=== PATIENT | female | born 1965 | race Caucasian/White ===

== ENCOUNTER 2016-12-19 19:23 | Observation (INO) | payer OTHER ==
--- NOTE | 2016-12-19 19:27 | PDOC ---
Rapid Medical Evaluation Medical Evaluation: Allergies Allergy/AdvReac Type Severity Reaction Status Date / Time ?ANTIBIOTIC Allergy Intermediate TONGUE Uncoded 05/06/15 10:42 SWELLING 12/19/16 19:25 51 yo F c/o CP/frontal ferguson/neck discomfort x2h while standing without SOB. Pain is exacerbated on deep inspiration and touch. Alleviated at rest/calm. No fever /chills, n/v. No recent travels/prolong sitting/bcp. <Mamie Mayo - Last Filed: 12/19/16 19:28> Medical Evaluation: Allergies Allergy/AdvReac Type Severity Reaction Status Date / Time ?ANTIBIOTIC Allergy Intermediate TONGUE Uncoded 12/19/16 19:26 SWELLING Vital Signs Temp Pulse Resp BP Pulse Ox 97.7 F 69 18 168/78 99 12/19/16 19:26 12/19/16 19:26 12/19/16 19:26 12/19/16 19:26 12/19/16 19:26 <Xochilt Winslow - Last Filed: 12/19/16 21:33> Time Seen by Provider: 12/19/16 19:25
[2016-12-19 19:29] VITALS: BMI 23.7
[2016-12-19 21:09] LABS: BASOPHIL 0.5 % (0-2.0); MCH 32.2 pg (25.7-33.7); MCHC 35.7 g/dl (32.0-36.0); MEAN CELL VOLUME 90.2 fl (80-96); MEAN PLT VOLUME 6.9 fl (7.5-11.1); NEUTROPHILS 43.6 % (42.8-82.8); PLATELET COUNT 224 K/MM3 (134-434); RDW 12.6 % (11.6-15.6); WHITE BLOOD COUNT 5.3 K/mm3 (4.0-10.0)
[2016-12-19 21:15] LABS: INR 1.03 (0.82-1.09); PROTHROMBIN TIME (PATIENT) 11.3 SEC (9.98-11.88)
[2016-12-19] MEDS ORDERED: ASPIRIN 81 MG CHEWABLE TABLETS PO ONE (21:24)
[2016-12-19] MEDS ORDERED: ACETAMINOPHEN 325 MG TABLET (FP) PO ONE (21:31)
[2016-12-19] MEDS ORDERED: ASPIRIN 81 MG CHEWABLE TABLETS ONE (21:32)
[2016-12-19 21:36] LABS: ALBUMIN 3.8 g/dl (3.4-5.0); ANION GAP 6 (8-16); BILIRUBIN,TOTAL 0.3 mg/dL (0.2-1.0); CALCIUM 9.4 mg/dL (8.5-10.1); CO2 29 mmol/L (21-32); CREATININE 0.7 mg/dL (0.55-1.02); GLUCOSE,RANDOM 110 mg/dL (74-106); SGOT/AST 16 U/L (15-37); SGPT/ALT 25 U/L (12-78); TOT PROT 6.9 g/dl (6.4-8.2)
[2016-12-19 21:38] LABS: ALK PHOS 91 U/L (45-117); TROPONIN I < 0.02 ng/ml (0.00-0.05)
--- NOTE | 2016-12-19 21:38 | PDOC ---
History of Present Illness - History of Present Illness Initial Comments: 12/19/16 21:42 The patient is a 51 year old female with a past medical hx of hypertension, and hyperlipidemia who presents to the ED complaining of chest pain and SOB for two hours. The patient states she felt these symptoms when she was standing up. She [place] was [place] the [place] when she felt the chest pain across her chest and felt very short of breath. The patient reports her chest pain is exacerbated with deep inspiration and palpation. The patient reports her pain is alleviated when she is relaxed. She is also complaining of neck pain and a frontal headache but denies any changes in vision, dizziness. The patient denies any nausea, vomiting, diarrhea The patient denies fever, chills. <Aileen Bonds - Last Filed: 12/19/16 21:48> - General History Source: Patient Exam Limitations: No Limitations - History of Present Illness Travel History: No Timing/Duration: reports: changing over time Quality: reports: moderate, other (pressure) Pain Radiation: reports: no radiation Activities at Onset: reports: none Alleviating Factors: improves with: None <Xochilt Winslow - Last Filed: 12/19/16 22:25> - General Chief Complaint: Chest Pain Stated Complaint: CHEST PAIN Time Seen by Provider: 12/19/16 19:25 Past History <Aileen Bonds - Last Filed: 12/19/16 21:48> - Past Medical History Anemia: Yes Asthma: No Cancer: No Cardiac Disorders: Yes CVA: No COPD: No CHF: No Dementia: No Diabetes: Yes (BORDERLINE) GI Disorders: No Disorders: No HTN: Yes Hypercholesterolemia: Yes Liver Disease: No Suicide Attempt (Hx): No Seizures: No Thyroid Disease: No - Surgical History Abdominal Surgery: Yes Orthopedic Surgery: Yes (LEFT KNEE SURGERY-MENISCUS TEAR) - Immunization History Immunization Up to Date: Yes - Psycho/Social/Smoking Cessation Hx Anxiety: No Suicidal Ideation: No Smoking Status: No Smoking History: Former smoker Have you smoked in the past 12 months: No Number of Cigarettes Smoked Daily: 7 If you are a former smoker, when did you quit?: 1.5yr Information on smoking cessation initiated: No 'Breaking Loose' booklet given: 05/06/15 Hx Alcohol Use: No Drug/Substance Use Hx: No Substance Use Type: None Hx Substance Use Treatment: No <Xochilt Winslow - Last Filed: 12/19/16 22:25> - Past Medical History Allergies/Adverse Reactions: Allergies Allergy/AdvReac Type Severity Reaction Status Date / Time No Known Drug Allergies Allergy Verified 12/19/16 21:40 ?ANTIBIOTIC Allergy Intermediate TONGUE Uncoded 12/19/16 19:26 SWELLING Home Medications: Ambulatory Orders Atorvastatin Ca [Lipitor] 40 mg PO HS 04/03/15 Lisinopril 10 mg PO DAILY 05/06/15 Metformin HCl [Glucophage] 1,000 mg PO BID 12/19/16 Pantoprazole Sodium [Protonix -] 40 mg PO DAILY 12/19/16 Review of Systems - Review of Systems Able to Perform ROS?: Yes Comments:: 12/19/16 21:47 CONSTITUTIONAL: Absent: fever, chills, diaphoresis, generalized weakness, malaise, loss of appetite HEENT: Absent: rhinorrhea, nasal congestion, throat pain, throat swelling, difficulty swallowing, mouth swelling, ear pain, eye pain, visual Changes CARDIOVASCULAR: +Chest pain. Absent: syncope, palpitations, irregular heart rate, lightheadedness, peripheral edema RESPIRATORY: +SOB Absent: cough, orthopnea, wheezing, stridor, hemoptysis GASTROINTESTINAL: Absent: abdominal pain, abdominal distension, nausea, vomiting, diarrhea, constipation, melena, hematochezia GENITOURINARY: Absent: dysuria, frequency, urgency, hesitancy, hematuria, flank pain, genital pain MUSCULOSKELETAL: +Neck pain. Absent: joint swelling SKIN: Absent: rash, itching, pallor HEMATOLOGIC/IMMUNOLOGIC: Absent: easy bleeding, easy bruising, lymphadenopathy, frequent infections ENDOCRINE: Absent: unexplained weight gain, unexplained weight loss, heat intolerance, cold intolerance NEUROLOGIC: +Headache. Absent: focal weakness or paresthesias, dizziness, unsteady gait, seizure, mental status changes, bladder or bowel incontinence PSYCHIATRIC: Absent: anxiety, depression, suicidal or homicidal ideation, hallucinations. <Aileen Bonds - Last Filed: 12/19/16 21:48> *Physical Exam - Vital Signs Last Vital Signs Temp Pulse Resp BP Pulse Ox 97.7 F 69 18 168/78 99 12/19/16 19:26 12/19/16 19:26 12/19/16 19:26 12/19/16 19:26 12/19/16 19:26 - Physical Exam Comments: 12/19/16 21:47 GENERAL: Well developed, well nourished. Awake and alert. No acute distress. HEENT: Normocephalic, atraumatic. PERRLA, EOMI. No conjunctival pallor. Sclera are non- icteric. Moist mucous membranes. Oropharynx is clear. NECK: Supple. Full ROM. No JVD. Carotid pulses 2+ and symmetric, without bruits. No thyromegaly. No lymphadenopathy. CARDIOVASCULAR: Regular rate and rhythm. No murmurs, rubs, or gallops. Distal pulses are 2+ and symmetric. PULMONARY: No evidence of respiratory distress. Lungs clear to auscultation bilaterally. No wheezing, rales or rhonchi. ABDOMINAL: Soft. Non-tender. Non-distended. No rebound or guarding. No organomegaly. Normoactive bowel sounds. MUSCULOSKELETAL Normal range of motion at all joints. No bony deformities or tenderness. No CVA tenderness. EXTREMITIES: No cyanosis. No clubbing. No edema. No calf tenderness. SKIN: Warm and dry. Normal capillary refill. No rashes. No jaundice. NEUROLOGICAL: Alert, awake, appropriate. Cranial nerves 2-12 intact. No deficits to light touch and temperature in face, upper extremities and lower extremities. No motor deficits in the in face, upper extremities and lower extremities. Normoreflexic in the upper and lower extremities. Normal speech. Toes are down-going bilaterally. Gait is normal without ataxia. PSYCHIATRIC: Cooperative. Good eye contact. Appropriate mood and affect. <Aileen Bonds - Last Filed: 12/19/16 21:48> - Vital Signs Last Vital Signs Temp Pulse Resp BP Pulse Ox 97.7 F 69 18 168/78 99 12/19/16 19:26 12/19/16 19:26 12/19/16 19:26 12/19/16 19:26 12/19/16 19:26 <Xochilt Winslow - Last Filed: 12/19/16 22:25> Heart Score/ECG Review - ECG Impressions Comment:: 12/19/16 21:49 EKG NSR at a reate of 63 BPM, no change from prior <Aileen Bonds - Last Filed: 12/19/16 21:48> ED Treatment Course - LABORATORY CBC & Chemistry Diagram: 12/19/16 20:48 12/19/16 20:48 - ADDITIONAL ORDERS Additional order review: Laboratory Results 12/19/16 20:48 INR 1.03 12/19/16 20:48 RBC 3.26 L MCV 90.2 MCHC 35.7 RDW 12.6 MPV 6.9 L Neutrophils % 43.6 D Lymphocytes % 46.1 H D Monocytes % 7.8 Eosinophils % 2.0 Basophils % 0.5 <Aileen Bonds - Last Filed: 12/19/16 21:48> - LABORATORY CBC & Chemistry Diagram: 12/19/16 20:48 12/19/16 20:48 - ADDITIONAL ORDERS Additional order review: Laboratory Results 12/19/16 20:48 INR 1.03 12/19/16 20:48 RBC 3.26 L MCV 90.2 MCHC 35.7 RDW 12.6 MPV 6.9 L Neutrophils % 43.6 D Lymphocytes % 46.1 H D Monocytes % 7.8 Eosinophils % 2.0 Basophils % 0.5 <Xochilt Winslow - Last Filed: 12/19/16 22:25> Medical Decision Making - Medical Decision Making 12/19/16 21:34 51 yo female dev chest pain earlier today. She had a pressure"like someone was sitting on my chest".She took a baby aspirin at the time -she also had shortness of breath when she dev chest pain ekg shows nsr@ 63 bpm, nonspecific st ,t wave changes -she now has c/o [place] social history-smoked 1ppd for 40 years,quit tobacco 18 months ago,rare etoh use -denies fever,chills,nausea,vomiting,cough PMH gallstones,HTN,NIDDM PSH c section,TL -Dr Acuna states she will admit OBS Telemetry cvr [id number] lungs cta b/l plan cbc,card enzyme,cxr,chem ,inr imp angina 12/19/16 21:40 <Xochilt Winslow - Last Filed: 12/19/16 22:25> *DC/Admit/Observation/Transfer - Attestations Scribe Attestion: 12/19/16 21:45 Documentation prepared by Aileen Bonds, acting as medical planner for Xochilt Winslow MD/DO. <Aileen Bonds - Last Filed: 12/19/16 21:48> - Discharge Dispostion Admit: Yes <Xochilt Winslow - Last Filed: 12/19/16 22:25> Diagnosis at time of Disposition: Chest pain Qualifiers: Chest pain type: precordial chest pain Qualified Code(s): R07.2 - Precordial pain - Referrals Referrals: Lisandra Mckeon MD [Primary Care Provider] -
[2016-12-19] MEDS ORDERED: ACETAMINOPHEN 325 MG TABLET (FP) ONE (21:56)
[2016-12-19] MEDS ORDERED: KETOROLAC TROMETHAMINE 30 MG/1 ML VIAL ONE (22:56)
[2016-12-19] MEDS ORDERED: KETOROLAC TROMETHAMINE 30 MG/1 ML VIAL IVPUSH ONE (22:58)
--- NOTE | 2016-12-19 23:02 | HP ---
Admitting History and Physical - Primary Care Physician PCP: Olamide Acuna - Admission Chief Complaint: chest pain History of Present Illness: 51 y o female came to er for chest pain, radiating to neck.and severe head ache - Smoking History Smoking history: Former smoker Have you smoked in the past 12 months: No Aproximately how many cigarettes per day: 7 If you are a former smoker, when did you quit?: 1.5yr - Alcohol/Substance Use Hx Alcohol Use: No Home Medications - Allergies Allergies/Adverse Reactions: Allergies Allergy/AdvReac Type Severity Reaction Status Date / Time No Known Drug Allergies Allergy Verified 12/19/16 21:40 ?ANTIBIOTIC Allergy Intermediate TONGUE Uncoded 12/19/16 19:26 SWELLING - Home Medications Home Medications: Ambulatory Orders Atorvastatin Ca [Lipitor] 40 mg PO HS 04/03/15 Lisinopril 10 mg PO DAILY 05/06/15 Metformin HCl [Glucophage] 1,000 mg PO BID 12/19/16 Pantoprazole Sodium [Protonix -] 40 mg PO DAILY 12/19/16 Physical Examination Vital Signs: Vital Signs Temperature 97.7 F 12/19/16 19:26 Pulse Rate 69 12/19/16 19:26 Respiratory Rate 18 12/19/16 19:26 Blood Pressure 170/80 12/19/16 22:05 O2 Sat by Pulse Oximetry (%) 99 12/19/16 19:26 Constitutional: Yes: No Distress Eyes: Yes: Conjunctiva Clear HENT: Yes: Atraumatic Cardiovascular: Yes: Regular Rate and Rhythm Respiratory: Yes: CTA Bilaterally Gastrointestinal: Yes: Normal Bowel Sounds Extremities: Yes: WNL Problem List - Problems (1) Chest pain Code(s): R07.9 - CHEST PAIN, UNSPECIFIED Qualifiers: Chest pain type: precordial chest pain Qualified Code(s): R07.2 - Precordial pain (2) Cholelithiasis Code(s): K80.20 - CALCULUS OF GALLBLADDER W/O CHOLECYSTITIS W/O OBSTRUCTION Assessment/Plan Laboratory Tests 12/19/16 12/19/16 12/19/16 20:48 20:48 20:48 WBC 5.3 RBC 3.26 L Hgb 10.5 L D Hct 29.4 L D MCV 90.2 MCHC 35.7 RDW 12.6 Plt Count 224 MPV 6.9 L Neutrophils % 43.6 D Lymphocytes % 46.1 H D Monocytes % 7.8 Eosinophils % 2.0 Basophils % 0.5 INR 1.03 Sodium 141 Potassium 3.7 Chloride 106 Carbon Dioxide 29 Anion Gap 6 L BUN 23 H Creatinine 0.7 D Creat Clearance w eGFR > 60 Random Glucose 110 H D Calcium 9.4 Total Bilirubin 0.3 D AST 16 D ALT 25 D Alkaline Phosphatase 91 Creatine Kinase 138 Troponin I < 0.02 Total Protein 6.9 Albumin 3.8 a/p 1.chest pain tele monitoring serial cardiac enzymes cardiology consult 2.htn 3.dm 4.hld 5.gall stones
[2016-12-20] MEDS: ACETAMINOPHEN 325 MG TABLET (FP) PO PRN ×2 (01:53→22:25)
[2016-12-20 04:40] LABS: TROPONIN I < 0.02 ng/ml (0.00-0.05)
[2016-12-20] MEDS ORDERED: metFORMIN HCL 500 MG TABLET (FP) PO SCH (07:00)
--- NOTE | 2016-12-20 09:04 | PN ---
Progress Note (short form) - Note Progress Note: Cardiology Consult Dictated IMP: Mild to Moderate AR HTN DM Atypical CP s/ NSST ST/T wave changes REC: Echo Stress MIBI today Further recommendations pending above Thanks.
[2016-12-20] MEDS: LISINOPRIL 10 MG TABLET (FP) PO SCH (09:51)
[2016-12-20] MEDS: ASPIRIN 81 MG CHEWABLE TABLETS PO SCH (09:52)
[2016-12-20] MEDS: PANTOPRAZOLE 40 MG TABLET (FP) PO SCH (09:52)
--- NOTE | 2016-12-20 10:28 | CONS ---
DATE OF CONSULTATION: 12/20/2016 CONSULTATION REQUESTED BY: Olamide Acuna MD REASON FOR CONSULTATION: Chest pain. HISTORY OF PRESENT ILLNESS: The patient is a 51-year-old female with type 2 diabetes, hypertension, hyperlipidemia, and history of aortic regurgitation, who presents to the emergency room with an episode of substernal chest pain that occurred yesterday after a bout of coughing. She describes the pain as diffusely across the precordium, worse with movement and deep breathing. She also states that it is worse with palpation of the anterior precordium. She denies recent upper respiratory infections or chronic cough, denies fevers or chills. Denies recent airplane travel. She denies previous history of coronary artery disease, although was told by her primary care physician that she had a murmur. She has not had a stress test in the last year. She denies palpitations, PND, orthopnea, syncope, or other symptoms of heart failure. She exercises regularly on a treadmill since the diagnosis of her diabetes, she works as a physical therapist, and has had no difficulties or cardiac symptoms with her regular exercise routines of late. Her admission chest x-ray was unremarkable, and her oxygen saturation has been normal on room air. PAST MEDICAL HISTORY: As above and also includes chronic cholelithiasis for which an elective cholecystectomy is planned in the upcoming months. PAST SURGICAL HISTORY: Includes bilateral knee surgeries for torn meniscus, prior [employer] surgeries for ovarian cysts, C-sections, and tubal ligation. ALLERGIES: She has no known drug allergies. MEDICATIONS: Her home medications include metformin, Lipitor, lisinopril, and Protonix. Here, she is on Tylenol p.r.n., Lipitor 40 daily, Prinivil 10 daily, metformin 1000 b.i.d., and Protonix. FAMILY HISTORY: Unremarkable for early CAD or sudden cardiac . SOCIAL HISTORY: Former smoker, quit approximately 6 months ago, had smoked 1/2 pack to a pack a day for 20 years. Social alcohol. No illegal drugs. PHYSICAL EXAMINATION: Vital Signs: Afebrile with temperature of 97.5, pulse 60, blood pressure 135/80, oxygen saturation 100 on room air. Neck: No bruits. Heart: S1, S2 regular, no murmurs. Breast implants are present. There is tenderness to palpation over the anterior precordium diffusely. Chest: Clear, with no wheezing or rhonchi. Abdomen: Generally soft, nontender. No rebound or guarding. Extremities: Warm, with no edema. DIAGNOSTIC DATA: Her EKG showed normal sinus rhythm with nonspecific ST-T wave changes in V3, V4, and V5. LABORATORY: White count 5.3, hematocrit 29, platelets 224, INR 1.0. Sodium 141, potassium 3.7, creatinine 0.7. CK and troponin negative x2 sets. ASSESSMENT: A 51-year-old female with multiple cardiac risk factors including hypertension and diabetes, presents with atypical chest pain, nonspecific electrocardiogram, and 2 negative cardiac enzymes. The differential diagnosis includes costochondritis, musculoskeletal strain, coronary artery disease, although symptoms are atypical in nature. Doubt cholelithiasis/cholecystitis. RECOMMENDATIONS: 1. Echocardiogram to assess LV function, rule out pericardial disease, and to assess aortic regurgitation, aortic root. 2. Aspirin 81 daily. 3. Plan for stress MPI today for further risk stratification. Further recommendations pending above. Cassandra [id number]
[2016-12-20 13:46] LABS: TROPONIN I < 0.02 ng/ml (0.00-0.05)
--- NOTE | 2016-12-20 14:00 | EKG ---
Test Reason : Blood Pressure : / mmHG Vent. Rate : 065 BPM Atrial Rate : 065 BPM P-R Int : 186 ms QRS Dur : 096 ms QT Int : 398 ms P-R-T Axes : 042 005 003 degrees QTc Int : 413 ms NORMAL SINUS RHYTHM NONSPECIFIC ST ABNORMALITY ABNORMAL ECG WHEN COMPARED WITH ECG OF 03-APR-2015 18:33, NO SIGNIFICANT CHANGE WAS FOUND Confirmed by GARY LOMAX MD ([id number]) on 12/20/2016 2:00:09 PM Referred By: Confirmed By:GARY LOMAX MD
--- NOTE | 2016-12-20 14:46 | PN ---
Progress Note (short form) - Note Progress Note: Cardiology Addendum Abnl nuclear d/w patient. Options of medical Rx vs definitive dx w LHC discussed in detail. Risks/benefits both options discussed. After full discussion w/ ample opportunity for questions, patient opted for cath. Will arrange transfer to [facility]. Hold metformin.
[2016-12-20] MEDS ORDERED: SODIUM CHLORIDE 1,000 ML IV SCH (15:15)
[2016-12-20] MEDS ORDERED: KETOROLAC TROMETHAMINE 30 MG/1 ML VIAL IVPUSH SCH (19:15)
--- NOTE | 2016-12-20 19:16 | PN ---
Progress Note, Physician - Current Medication List Current Medications: Active Medications Acetaminophen (Tylenol -) 650 mg PO Q6H PRN PRN Reason: FEVER OR PAIN Last Admin: 12/20/16 01:53 Dose: 650 mg Acetylcysteine (Mucomyst 20 Oral / Inh Use Only*) 600 mg PO BID [facility] Stop: 12/22/16 10:01 Aspirin (Asa -) 81 mg PO DAILY [facility] Last Admin: 12/20/16 09:52 Dose: 81 mg Atorvastatin Calcium (Lipitor -) 40 mg PO HS [facility] Sodium Chloride (Normal Saline -) 1,000 mls @ 75 mls/hr IV ASDIR [facility] Last Admin: 12/20/16 15:27 Dose: 75 mls/hr Lisinopril (Prinivil) 10 mg PO DAILY [facility] Last Admin: 12/20/16 09:51 Dose: 10 mg Pantoprazole Sodium (Protonix -) 40 mg PO DAILY [facility] Last Admin: 12/20/16 09:52 Dose: 40 mg - Objective Vital Signs: Vital Signs Temperature 98.1 F 12/20/16 18:00 Pulse Rate 68 12/20/16 18:00 Respiratory Rate 19 12/20/16 18:00 Blood Pressure 136/81 12/20/16 18:00 O2 Sat by Pulse Oximetry (%) 100 12/20/16 00:45 Constitutional: Yes: No Distress HENT: Yes: Atraumatic Neck: Yes: Supple Cardiovascular: Yes: Regular Rate and Rhythm Respiratory: Yes: CTA Bilaterally Gastrointestinal: Yes: Normal Bowel Sounds Extremities: Yes: WNL Neurological: Yes: Alert, Oriented Labs: INR, PTT INR 1.03 (0.82-1.09) 12/19/16 20:48 Problem List - Problems (1) Chest pain Code(s): R07.9 - CHEST PAIN, UNSPECIFIED Qualifiers: Chest pain type: precordial chest pain Qualified Code(s): R07.2 - Precordial pain (2) Cholelithiasis Code(s): K80.20 - CALCULUS OF GALLBLADDER W/O CHOLECYSTITIS W/O OBSTRUCTION Assessment/Plan a/p 1.chest pain tele monitoring serial cardiac enzymes...negative for cardiac cath in am will be transfered to [facility] 2.htn on meds stable 3.dm hold metformin 4.hld on meds 5.gall stones
[2016-12-20] MEDS ORDERED: ATORVASTATIN CA 40 MG TABLET (FP) PO SCH (22:00)
[2016-12-20] MEDS: ACETYLCYSTEINE 20% 200MG/ML 30 ML VIAL *FOR ORAL / INH USE ONLY PO SCH (22:34)
[2016-12-20] MEDS ORDERED: ZOLPIDEM TARTRATE 5 MG TABLET PO ONE (23:00)
[2016-12-21 00:49] LABS: TROPONIN I < 0.02 ng/ml (0.00-0.05)
--- NOTE | 2016-12-21 09:25 | PN ---
Progress Note (short form) - Note Progress Note: Seen and examined In NSR. BP controlled. No further CP. Exam is stable with clear lungs and no edema. CTA showed no aortic dilatation, prominent Ca2+ of coronaries and an incidental pulmonary nodule which needs f/u. Updated daughter Barbara on findings and plan for cath. All results discussed in detail. REC: Plan for tx to [facility] for LHC today. Patient instructed to f/u w/ me 1-2 weeks post cath.
[2016-12-21] MEDS: LISINOPRIL 10 MG TABLET (FP) PO SCH (10:00)
[2016-12-21] MEDS: PANTOPRAZOLE 40 MG TABLET (FP) PO SCH (10:00)
[2016-12-21] MEDS: ACETYLCYSTEINE 20% 200MG/ML 30 ML VIAL *FOR ORAL / INH USE ONLY PO SCH ×3 (10:00→14:15)
[2016-12-21] MEDS: ASPIRIN 81 MG CHEWABLE TABLETS PO SCH (10:02)
[2016-12-21 13:54] VITALS: BP 136/75; PULSE 61; TEMP 97.9
--- NOTE | 2016-12-21 18:07 | DS ---
Physical Examination Vital Signs: Vital Signs Temperature 97.9 F 12/21/16 13:53 Pulse Rate 61 12/21/16 13:53 Respiratory Rate 20 12/21/16 13:53 Blood Pressure 136/75 12/21/16 13:53 O2 Sat by Pulse Oximetry (%) 99 12/21/16 06:46 Constitutional: Yes: No Distress HENT: Yes: Atraumatic Neck: Yes: Supple Cardiovascular: Yes: Regular Rate and Rhythm Respiratory: Yes: CTA Bilaterally Gastrointestinal: Yes: Normal Bowel Sounds Extremities: Yes: WNL Neurological: Yes: Alert, Oriented Discharge Summary Reason For Visit: CHEST PAIN Current Active Problems Chest pain (Acute) - Instructions Referrals: Lisandra Mckeon MD [Primary Care Provider] - - Home Medications Comprehensive Discharge Medication List: Ambulatory Orders Atorvastatin Ca [Lipitor] 40 mg PO HS 04/03/15 Lisinopril 10 mg PO DAILY 05/06/15 Metformin HCl [Glucophage] 1,000 mg PO BID 12/19/16 Pantoprazole Sodium [Protonix -] 40 mg PO DAILY 12/19/16 DC [facility]AC CATH
== END 2016-12-21 18:41 | disposition short-term general hospital (02) ==
LOC: JER 19:23 → JERBED 21:39 → J4W 12-20 00:56
PROVIDERS: ADMIT Internal Medicine; ATTEND Internal Medicine
DX: I20.0 Unstable angina (principal); I10 Essential (primary) hypertension; E78.5 Hyperlipidemia, unspecified; D64.9 Anemia, unspecified; Z87.891 Personal history of nicotine dependence; K80.20 Calculus of gallbladder without cholecystitis without obstruction; R91.1 Solitary pulmonary nodule; R07.2 Precordial pain
CPT/HCPCS: 36415; 71010-TC; 71275-TC; 78452-TC; 80053; 82550; 84484; 84703; 85025; 85610; 93005; 93010; 93017; 93306-TC; 99285-25; A9502; G0378

== ENCOUNTER 2018-12-02 17:06 | Emergency (ER) | payer BC, OTHER ==
[2018-12-02 17:27] VITALS: BP 139/74; PULSE 72; TEMP 98.6; BMI 23.3
--- NOTE | 2018-12-02 17:27 | PDOC ---
Rapid Medical Evaluation Chief Complaint: Injury Time Seen by Provider: 12/02/18 17:25 Medical Evaluation: Allergies Allergy/AdvReac Type Severity Reaction Status Date / Time No Known Drug Allergies Allergy Verified 12/19/16 21:40 ?ANTIBIOTIC Allergy Intermediate TONGUE Uncoded 12/19/16 19:26 SWELLING I have performed a brief in-person evaluation of this patient. The patient presents with a chief complaint of: Twisted R ankle 6 days ago while coming out of vehicle Pertinent physical exam findings: Mild R lateral malleolus tenderness, minimal swelling, no deformity I have ordered the following: R ankle/foot xray, Motrin The patient will proceed to the ED for further evaluation. 12/02/18 17:25 Discharge Disposition - Discharge Dispostion Condition at time of disposition: Stable - Referrals - Patient Instructions - Post Discharge Activity
[2018-12-02] MEDS ORDERED: IBUPROFEN 400 MG TABLET (FP) PO ONE ×2 (17:28→17:29)
--- NOTE | 2018-12-02 18:32 | PDOC ---
History of Present Illness - General Chief Complaint: Injury Stated Complaint: R ANKLE SPRAIN Time Seen by Provider: 12/02/18 17:25 History Source: Patient Exam Limitations: No Limitations - History of Present Illness Initial Comments: 12/02/18 18:28 Patient here for evaluation of right ankle pain. States one week ago was stepping out of a car, twisted her all in an inversion-type fashion, and since that time has had swelling and pain. Did not hear a crack, has been ambulatory since. Using ibuprofen, rest, gentle massage and ice. Occurred: reports: last week Severity: reports: mild, moderate Pain Location: reports: lower extremity Method of Injury: Yes: fall Modifying Factors: improves with: cold therapy, pain medication Associated Symptoms (Fall): denies symptoms Past History - Travel Traveled outside of the country in the last 30 days: No Close contact w/someone who was outside of country & ill: No - Past Medical History Allergies/Adverse Reactions: Allergies Allergy/AdvReac Type Severity Reaction Status Date / Time No Known Drug Allergies Allergy Verified 12/19/16 21:40 ?ANTIBIOTIC Allergy Intermediate TONGUE Uncoded 12/19/16 19:26 SWELLING Home Medications: Ambulatory Orders Atorvastatin Ca [Lipitor] 40 mg PO HS 04/03/15 Metformin HCl [Glucophage] 1,000 mg PO BID 12/19/16 Pantoprazole Sodium [Protonix -] 40 mg PO DAILY 12/19/16 Lisinopril 10 mg PO ASDIR 12/02/18 Anemia: Yes Asthma: No Cancer: No Cardiac Disorders: Yes CVA: No COPD: No CHF: No Dementia: No Diabetes: Yes (BORDERLINE) GI Disorders: No Disorders: No HTN: Yes Hypercholesterolemia: Yes Liver Disease: No Seizures: No Thyroid Disease: No - Surgical History Abdominal Surgery: Yes Orthopedic Surgery: Yes (LEFT KNEE SURGERY-MENISCUS TEAR) - Immunization History Immunization Up to Date: Yes - Suicide/Smoking/Psychosocial Hx Smoking Status: No Smoking History: Never smoked Have you smoked in the past 12 months: No Number of Cigarettes Smoked Daily: 7 If you are a former smoker, when did you quit?: 1.5yr Information on smoking cessation initiated: No 'Breaking Loose' booklet given: 05/06/15 Hx Alcohol Use: No Drug/Substance Use Hx: No Substance Use Type: None Hx Substance Use Treatment: No Review of Systems - Review of Systems Able to Perform ROS?: Yes Is the patient limited Turkish proficient: Yes Constitutional: Yes: Symptoms Reported, See HPI, Malaise HEENTM: No: Symptoms Reported Respiratory: No: Symptoms reported Musculoskeletal: Yes: Symptoms Reported, See HPI, Joint Pain, Joint Swelling ( right ankle) All Other Systems: Reviewed and Negative *Physical Exam - Vital Signs Last Vital Signs Temp Pulse Resp BP Pulse Ox 98.6 F 72 18 139/74 98 12/02/18 17:24 12/02/18 17:24 12/02/18 17:24 12/02/18 17:24 12/02/18 17:24 - Physical Exam General Appearance: Yes: Nourished, Appropriately Dressed, Apparent Distress, Mild Distress HEENT: positive: LUCIANO, Normal ENT Inspection, TMs Normal, Pharynx Normal Neck: positive: Supple. negative: Tender Musculoskeletal: negative: Normal Inspection (mild swelling to the lateral malleolus with no point tenderness to medial or lateral malleolus, metatarsal or navicular bones. Negative squeeze test, however patient with flexion and plantar flexion of foot reproduces pain radiating up lateral aspect of right leg. Achilles tendon is intact, able to flex and extend foot strong against resistance. Neurovascular intact to toes.), Decreased Range of Motion Extremity: positive: Normal Capillary Refill, Normal Inspection, Normal Range of Motion Integumentary: positive: Normal Color, Dry, Warm Neurologic: positive: php mysql web developer II-XII NML intact, Fully Oriented, Alert, Normal Mood/ Affect, Normal Response, Motor Strength 5/5 Moderate Sedation - Procedure Monitoring Vital Signs: Procedure Monitoring Vital Signs Temperature 98.6 F 12/02/18 17:24 Pulse Rate 72 12/02/18 17:24 Respiratory Rate 18 12/02/18 17:24 Blood Pressure 139/74 12/02/18 17:24 O2 Sat by Pulse Oximetry (%) 98 12/02/18 17:24 ED Treatment Course - Medications Given in the ED: ED Medications Discontinued Medications Generic Name Dose Route Start Last Admin Trade Name Freq PRN Reason Stop Dose Admin Ibuprofen 800 mg 12/02/18 17:28 12/02/18 17:31 Motrin - PO 12/02/18 17:29 800 mg ONCE ONE Administration Progress Note - Progress Note Progress Note: Right ankle sprain, mild. Will follow-up with or without, before meals Aircast provided. *DC/Admit/Observation/Transfer Diagnosis at time of Disposition: Sprain of right ankle Qualifiers: Encounter type: initial encounter Involved ligament of ankle: unspecified ligament Qualified Code(s): S93.401A - Sprain of unspecified ligament of right ankle, initial encounter - Discharge Dispostion Disposition: HOME Condition at time of disposition: Stable Decision to Admit order: No - Referrals Referrals: Rayshawn Limon DO [Staff Physician] - - Patient Instructions Printed Discharge Instructions: DI for Ankle Sprain Additional Instructions: Rest, ice to area on and off for 15 minutes 4-6 times a day Avoid heavy lifting or exercise until pain and swelling is resolved or until further directed Keep area highly elevated to reduce swelling Use splints/Jose Daniel wrap as directed Followup with orthopedist in one to 2 days if not improving, if significantly improved may wait one week for followup with orthopedist May use ibuprofen every 6 hours as needed for pain - Post Discharge Activity Forms/Work/School Notes: Back to Work
== END 2018-12-02 18:37 | disposition home or self-care (01) ==
LOC: JERFT 17:06
PROC: 2W3QX1Z Immobilization of Right Lower Leg using Splint (ICD-10-PCS; principal; 2018-12-02)
DX: S93.401A Sprain of unspecified ligament of right ankle, initial encounter (principal); V48.4XXA Person boarding or alighting a car injured in noncollision transport accident, initial encounter; Y92.488 Other paved roadways as the place of occurrence of the external cause; Y93.89 Activity, other specified; Y99.8 Other external cause status; I10 Essential (primary) hypertension; E78.00 Pure hypercholesterolemia, unspecified; E11.9 Type 2 diabetes mellitus without complications; Z79.84 Long term (current) use of oral hypoglycemic drugs
CPT/HCPCS: 29515; 73610-TC-RT-FY; 73630-TC-RT-FY; 99281-25

== ENCOUNTER 2019-07-16 16:21 | Emergency (ER) | payer OTHER ==
[2019-07-16 16:29] VITALS: BP 142/76; PULSE 60; TEMP 98.4; BMI 23.2
--- NOTE | 2019-07-16 16:29 | PDOC ---
Rapid Medical Evaluation Time Seen by Provider: 07/16/19 16:27 Medical Evaluation: Allergies Allergy/AdvReac Type Severity Reaction Status Date / Time No Known Drug Allergies Allergy Verified 12/19/16 21:40 ?ANTIBIOTIC Allergy Intermediate TONGUE Uncoded 12/19/16 19:26 SWELLING 07/16/19 16:27 HPI: Ankle pain s/p sprain 2/5 increasing pain x1 day without trauma PE: No gross deficits, thigh and calf are soft and non tender ORDERS: Nothing Discharge Disposition - Diagnosis Right ankle pain - Referrals - Patient Instructions - Post Discharge Activity
[2019-07-16] MEDS ORDERED: KETOROLAC TROMETHAMINE 60 MG/2 ML VIAL IM ONE (17:04)
--- NOTE | 2019-07-16 17:04 | PDOC ---
History of Present Illness - General Chief Complaint: Injury Stated Complaint: RT ANKLE PAIN/SWELLING Time Seen by Provider: 07/16/19 16:27 History Source: Patient Exam Limitations: No Limitations Past History - Travel Traveled outside of the country in the last 30 days: No Close contact w/someone who was outside of country & ill: No - Past Medical History Allergies/Adverse Reactions: Allergies Allergy/AdvReac Type Severity Reaction Status Date / Time No Known Drug Allergies Allergy Verified 07/16/19 16:31 ?ANTIBIOTIC Allergy Intermediate TONGUE Uncoded 07/16/19 16:31 SWELLING Home Medications: Ambulatory Orders Atorvastatin Ca [Lipitor] 40 mg PO HS 04/03/15 Metformin HCl [Glucophage] 1,000 mg PO BID 12/19/16 Pantoprazole Sodium [Protonix -] 40 mg PO DAILY 12/19/16 Lisinopril 10 mg PO ASDIR 12/02/18 Anemia: Yes Asthma: No Cancer: No Cardiac Disorders: Yes CVA: No COPD: No CHF: No Dementia: No Diabetes: Yes (BORDERLINE) GI Disorders: No Disorders: No HTN: Yes Hypercholesterolemia: Yes Liver Disease: No Seizures: No Thyroid Disease: No - Surgical History Abdominal Surgery: Yes Orthopedic Surgery: Yes (LEFT KNEE SURGERY-MENISCUS TEAR) - Immunization History Immunization Up to Date: Yes - Psycho Social/Smoking Cessation Hx Smoking Status: No Smoking History: Never smoked Have you smoked in the past 12 months: No Number of Cigarettes Smoked Daily: 7 If you are a former smoker, when did you quit?: 1.5yr 'Breaking Loose' booklet given: 05/06/15 Hx Alcohol Use: No Drug/Substance Use Hx: No Substance Use Type: None Hx Substance Use Treatment: No Review of Systems - Review of Systems Able to Perform ROS?: Yes Comments:: 07/16/19 20:37 CONSTITUTIONAL: Absent: fever, chills, diaphoresis, generalized weakness, malaise, loss of appetite MUSCULOSKELETAL: Present: R ankle pain,swelling Absent: arthralgia SKIN: Absent: rash, itching, pallor NEUROLOGIC: Absent: headache, focal weakness or paresthesias, dizziness, unsteady gait, seizure, mental status changes, bladder or bowel incontinence PSYCHIATRIC: Absent: anxiety, depression, suicidal or homicidal ideation, hallucinations. Is the patient limited Thai proficient: No *Physical Exam - Vital Signs Last Vital Signs Temp Pulse Resp BP Pulse Ox 98.4 F 60 16 142/76 98 07/16/19 16:27 07/16/19 16:27 07/16/19 16:27 07/16/19 16:27 07/16/19 16:27 - Physical Exam Comments: 07/16/19 20:38 GENERAL: The patient is awake, alert, and fully oriented, in no acute distress. HEAD: Normal with no signs of trauma. EYES: Pupils equal, round and reactive to light, extraocular movements intact, sclera anicteric, conjunctiva clear. EXTREMITIES: right ankle with mild swelling to the lateral malleolus. Decreased strength in the right foot due to pain. 4 out of 5 in the right versus 5 out of 5 in the left. 2+ distal pulses bilaterally at the DP. Normal range of motion, no edema. NEUROLOGICAL: Normal speech, normal gait. PSYCH: Normal mood, normal affect. SKIN: Warm, Dry, normal turgor, no rashes or lesions noted Medical Decision Making - Medical Decision Making 07/16/19 20:40 The patient is a 54-year-old female with past medical history of right ankle injury at work in November, presents to the ER with right pain and swelling. Patient notes that she went to physical therapy yesterday and they were massaging the area. She notes that the depth of massage was painful. She states that when she woke up this morning it was swollen and painful so she came to the ER for further evaluation. Denies fevers, chills, numbness and tingling weakness the affected extremity. A/P: Right ankle swelling See Exam section Repeat x-ray of the R ankle taken; no new fractures identified Likely overuse injury/sprain as a result of PT yesterday Toradol given with relief of symptoms DC home with antiinflammatories and ortho follow up I discussed the physical exam findings, ancillary test results and final diagnoses with the patient. I answered all of the patient's questions. The patient was satisfied with the care received and felt comfortable with the discharge plan and treatment plan. The Patient agrees to follow up with the primary care physician/specialist within 24-72 hours. Return precautions were given. Discharge - Discharge Information Problems reviewed: Yes Clinical Impression/Diagnosis: Right ankle pain Qualifiers: Chronicity: acute Qualified Code(s): M25.571 - Pain in right ankle and joints of right foot Condition: Stable Disposition: HOME - Admission No - Follow up/Referral Referrals: Lucero Knapp MD [Primary Care Provider] - - Patient Discharge Instructions Patient Printed Discharge Instructions: DI for Ankle Sprain Additional Instructions: You sprained your ankle. Your x-ray was negative for broken bones. The x-ray is unchanged from November It is most likely an overuse injury from PT yesterday. Please keep your ankle elevated while at rest above the level of your heart to reduce swelling. You may take Motrin 600 mg every 6 hours to help reduce pain and swelling. Please ice the area for 20 minute intervals at least 5 times a day to help reduce swelling. Please wear the Jose Daniel wrap. Please follow-up with orthopedics in 1 week if your symptoms are not improving. Return to the emergency department if you have worsening pain, or unable to walk , numbness and tingling of the foot, or had any changes in her symptoms. - Post Discharge Activity Work/Back to School Note: Back to Work
[2019-07-16] MEDS ORDERED: KETOROLAC TROMETHAMINE 60 MG/2 ML VIAL ONE (17:39)
== END 2019-07-16 18:47 | disposition home or self-care (01) ==
LOC: JERFT 16:21
PROC: 3E0233Z Introduction of Anti-inflammatory into Muscle, Percutaneous Approach (ICD-10-PCS; principal; 2019-07-16)
DX: S93.401A Sprain of unspecified ligament of right ankle, initial encounter (principal); M70.871 Other soft tissue disorders related to use, overuse and pressure, right ankle and foot; Y93.89 Activity, other specified; I10 Essential (primary) hypertension; E78.00 Pure hypercholesterolemia, unspecified; E11.9 Type 2 diabetes mellitus without complications; Z79.84 Long term (current) use of oral hypoglycemic drugs; D64.9 Anemia, unspecified; Z88.1 Allergy status to other antibiotic agents
CPT/HCPCS: 73610-TC-RT-FY; 73630-TC-RT-FY; 99283-25

== ENCOUNTER 2020-10-27 14:11 | Emergency (ER) | payer OTHER ==
[2020-10-27 14:28] VITALS: BMI 25.8
[2020-10-27 16:07] LABS: BASO % 0.3 % (0-2.0); HEMATOCRIT 35.4 % (32.4-45.2); HEMOGLOBIN 12.3 GM/dL (10.7-15.3); LYMPH % 42.8 % (8-40); MCH 31.8 pg (25.7-33.7); MCHC 34.6 g/dl (32.0-36.0); MEAN PLT VOLUME 6.8 fl (7.5-11.1); NEUT % 45.9 % (42.8-82.8); PLATELET COUNT 247 K/MM3 (134-434); RBC 3.85 M/mm3 (3.60-5.2); RDW 12.8 % (11.6-15.6); WHITE BLOOD COUNT 3.9 K/mm3 (4.0-10.0)
[2020-10-27 16:14] LABS: PROTHROMBIN TIME (PATIENT) 12.3 SEC (9.7-13.0)
[2020-10-27 16:17] LABS: ACTIVATED PTT 36.8 SECONDS (25.2-36.5)
[2020-10-27 16:28] LABS: CHLORIDE 104 mmol/L (98-107); SODIUM 140 mmol/L (136-145)
[2020-10-27 16:31] LABS: ALBUMIN 4.2 g/dl (3.4-5.0); ANION GAP 6 MMOL/L (8-16); BLOOD UREA NITROGEN 19.1 mg/dL (7-18); CALCIUM 9.7 mg/dL (8.5-10.1); CO2 29 mmol/L (21-32); LIPASE 70 U/L (73-393)
[2020-10-27 16:32] LABS: GLUCOSE,RANDOM 85 mg/dL (74-106)
[2020-10-27 16:34] LABS: CREATININE 0.8 mg/dL (0.55-1.3); SGOT/AST 14 U/L (15-37); SGPT/ALT 24 U/L (13-61)
[2020-10-27 16:36] LABS: BILIRUBIN,TOTAL 0.4 mg/dL (0.2-1); TOT PROT 7.8 g/dl (6.4-8.2)
[2020-10-27 16:37] LABS: ALK PHOS 68 U/L (45-117)
[2020-10-27] MEDS ORDERED: ONDANSETRON *ODT* 4 MG TABLET SL ONE (18:47)
[2020-10-27 19:01] VITALS: BP 180/85; PULSE 74; TEMP 97.6
== END 2020-10-27 18:50 | disposition home or self-care (01) ==
LOC: JER 14:11
DX: R10.9 Unspecified abdominal pain (principal)
CPT/HCPCS: 36415; 71046-TC-FY; 74019-TC-FY; 74177-TC; 80053; 82550; 83690; 84484; 85025; 85610; 85730; 86850; 86900; 86901; 93005; 93010; 99285-25; Q9967